=== PATIENT | male | born 1990 | race African-American/Black ===

== ENCOUNTER 2017-12-28 18:07 | Emergency (ER) | payer SELFPAY ==
[~2017-12-28] VITALS: Ht 175.3 cm; Wt 79.0 kg
[2017-12-28] MEDS ORDERED: ONDANSETRON HCL 4MG/2ML VIAL IV STA (18:33)
[2017-12-28] MEDS ORDERED: MORPHINE SULFATE 4 MG/ML CPJ (NOT FOR IM USE) IV STA (18:33)
[2017-12-28] MEDS ORDERED: SODIUM CHLORIDE 0.9% 1,000 ML IV ONE (18:33)
[2017-12-28] MEDS ORDERED: MORPHINE SULFATE 4 MG/ML CPJ (NOT FOR IM USE) IV ONE (18:45)
[2017-12-28] MEDS ORDERED: ONDANSETRON HCL 4MG/2ML VIAL IV ONE (18:45)
[2017-12-28] MEDS ORDERED: ETOMIDATE 2MG/ML 10ML VIAL IV ONE (18:45)
[2017-12-28 21:53] VITALS: BP 159/75
== END 2017-12-28 21:53 | disposition home or self-care (01) ==
LOC: ER 21:14
DX: S43.014A Anterior dislocation of right humerus, initial encounter (principal); F12.10 Cannabis abuse, uncomplicated; X50.0XXA Overexertion from strenuous movement or load, initial encounter; Y93.89 Activity, other specified; Y92.018 Other place in single-family (private) house as the place of occurrence of the external cause
CPT/HCPCS: 23650; 73030; 96374; 96375; 96376; 99152; 99285; J2270; J2405; J3490; J7030; Z7610

== ENCOUNTER 2017-12-29 09:19 | Emergency (ER) | payer SELFPAY ==
[~2017-12-29] VITALS: Ht 175.3 cm; Wt 81.0 kg
[2017-12-29 09:26] VITALS: BP 144/92
== END 2017-12-29 15:16 | disposition left against medical advice (07) ==
LOC: ER 11:04
DX: S49.80XA Other specified injuries of shoulder and upper arm, unspecified arm, initial encounter (principal); Z53.21 Procedure and treatment not carried out due to patient leaving prior to being seen by health care provider; X58.XXXA Exposure to other specified factors, initial encounter; Y93.89 Activity, other specified; Y92.89 Other specified places as the place of occurrence of the external cause; Y99.8 Other external cause status
CPT/HCPCS: 99282